=== PATIENT | female | born 1985 | race Caucasian/White ===

== ENCOUNTER 2020-09-21 17:10 | Outpatient (CLI) | payer OTHER, SELFPAY ==
--- NOTE | ~2020-09-21 | US_ITS ---
EXAMINATION: US venous doppler [facility] DATE: 09/21/2020 17:50 INDICATION: Left lower limb swelling TECHNIQUE: Freed scale images without and with compression and Doppler images of the left lower extrem ity veins were obtained. COMPARISON: None FINDINGS: The left common femoral vein, profunda femoral vein, femoral vein, popliteal vein, peroneal trunk, posterior tibial veins, and greater saphenous vein are patent. IMPRESSION: 1. Patent left lower extremity veins. No evidence of deep venous thrombosis. Reviewed, dictated and finalized at location A. TIONAL TRAINER
== END 2020-09-21 17:11 | disposition home or self-care (01) ==
PROVIDERS: PCP Obstetrics & Gynecology; Referring Provider Advanced Practice Midwife; Visit Provider Obstetrics & Gynecology
DX: R60.0 Localized edema (principal)
CPT/HCPCS: 93971

== ENCOUNTER 2020-10-12 06:13 | Inpatient (IN) | payer OTHER, SELFPAY ==
[2020-10-12] VITALS (39 sets, daily range): BP systolic 57–150; BP diastolic 35–109; PULSE 61–104; RESP 16; TEMP 36.2–36.8; O2SAT 98–100; BMI 35.2
--- NOTE | 2020-10-12 06:13 | LDADM ---
This patient, Estefanía Parada, was admitted to Labor/Delivery/Recovery 104 on 10/12/20 at 06:13. Plans for labor, pain management and were discussed with patient. Patient/family oriented to hospital policies and general routines including ID bracelet, bed and alarms, visiting hours, pain management, procedures, bathroom and other care routines, personal items, smoking policy, room service/diet and guest tray routines, infant security routines, and visiting hours. Patient/Family are encouraged to report perceived risks to care and to ask questions if they do not understand what they are told or what they should do. See OBIX for further documentation.
--- OUTSIDE RECORDS SUMMARY | 2020-10-12 06:18 | XMS_ITS | Encounter Summary ---
:1985 Author Care Team Providers Name Role Phone Cindy Irwin MD Primary Care Provider [phone] Reason for Visit OB visit 37w5d Assessment and Plan 1. Routine care Additional precautionary measu res were taken to minimize potential exposure to the Covid-19 virus during this patien t?s visit, including available hand parakeet raiser upon arrive, temperature check and being asked a series of screening questions. All staff wore face coverings during this en counter, as well as provided additional cleaning and sanitizing of all surfaces, including countertops, pens, chairs, door handles, light switches, etc, prior to a nd following the patient?s visit. Discussion Note: None recorded.Patient educational handouts: No information available. Plan of Care Reminders Provider Appointments Ob Routine Lily Harris CNM 10/13/2020 3:30PM ? Ob Routine Beryl Harris CNM 10/19/2020 3:45PM Lab None ? ? recorded. Referral None ? ? recorded. Procedures None ? ? recorded. Surgeries None ? ? recorded. Imaging None ? ? recorded. Medications Name Start Date ? ? ? Vitamin D ? Medica
--- OUTSIDE RECORDS SUMMARY | 2020-10-12 06:18 | XMS_ITS ---
:1985 Author Care Team Providers Name Role Phone WALKER GUERRA MD Primary Care Provider [phone] Allergies Code Code System Name Reaction Severity Status Onset NKDA ? Medications Name Status Start Date Stop Date ? ? Anusol-HC 2.5 % topical cream with perineal applicator Completed 03/19/2018 07/04/2019 apply by topical route 2 times every day to the affected area(s ) dicyclomine 20 mg tablet Completed ? 020 Angeline 0.35 mg tablet Completed 01/29/2014 09/11/2017 take 1 tablet by oral route every day Fora [id number] strips-lancets 30 gauge combo pack Complete d 02/15/2018 07/04/2019 pt checking BS QID fasting and 1 hr after each meal iron ER 325 mg (65 mg iron) capsule,extended release Completed ? 09/11/2017 take 1 Tablet by Oral route 3 times every day OneTouch Delica Plus Lancet 33 gauge Completed ? 10/01/2020 USE TO TEST BLOOD SUGAR 4 TIMES DAILY F ASTING IN MORNING & 1 HR AFTER BREAKFAST, LUNCH, & DINNER OneTouch Verio Reflect Meter Completed ? 05/2021 USE TO TEST BLOOD SUGAR FOUR TIMES DAILY OneTouch Verio test strips Completed ? 10/01 USE TO TEST BLOOD SUGAR 4 TIMES DAILY F ASTING IN MORNING & 1 HR AFTER BREAKFAST, LUNCH & DINNER Active ? Not available Reglan 10 mg tablet Completed 06/03/2013 01/29/2014 take 1 tablet (10MG) by oral route every 6 hours as needed fo r nausea Slynd 4 mg (28) tablet Active 07/04/2019 Not avail able take 1 tablet by oral route every day at the same time each da y Triveen-Duo DHA 29 mg-1 mg-400 mg oral pack Completed 04/2406/18/2013
--- OUTSIDE RECORDS SUMMARY | 2020-10-12 06:19 | XMS_ITS | Encounter Summary ---
:1985 Author Care Team Providers Name Role Phone Cindy Irwin MD Primary Care Provider [phone] Reason for Visit OB visit Assessment and Plan 1. Routine care Discussion Note: None recorded.Patient educational handouts: No [...] Date ? ? ? Vitamin D ? Medications Administered None recorded. Vitals Height Weight BMI Blood Pressure 5 ft 4.75 in 212 lbs 35.5 kg/m2 123/76 mm[Hg] Results Lab Results None recorded. Allergies Code Code System Name Reaction Severity Onset NKDA ? ? ? Problems Name Status Onset Date Source ?
--- OUTSIDE RECORDS SUMMARY | 2020-10-12 06:19 | XMS_ITS | Encounter Summary ---
:1985 Author Care Team Providers Name Role Phone Cindy Irwin MD Primary Care Provider [phone] Reason for Visit OB visit 32w2d Assessment and Plan 1. Routine care Additional precautionary measu res were taken to minimize potential exposure to the Covid-19 virus during this patien t?s visit, including available hand street contractor upon arrive, temperature check and being asked [...] Date ? ? ? Vitamin D ? Medic
--- OUTSIDE RECORDS SUMMARY | 2020-10-12 06:19 | XMS_ITS | Encounter Summary ---
:1985 Author Care Team Providers Name Role Phone Cindy Irwin MD Primary Care Provider [phone] Reason for Visit OB visit [id number] increased swollen in left le g/ankle Assessment and Plan 1. Routine care Additional precautionary measu res were taken to minimize potential exposure to the Covid-19 virus during this patien t?s visit, including available hand business solution analyst upon arrive, temperature check and being asked a series of screening questions. All staff wore face coverings during this en counter, as well as provided additional cleaning and sanitizing of all surfaces, including countertops, pens, chairs, door handles, light switches, etc, prior to a nd following the patient?s visit. 2. Edema of lower extremity ? US, doppler, venous Discussion Note: None recorded.Patient educational handouts: No information available. Plan of Care Reminders Provider Appointments Ob Routine Lily Harris CNM 10/13/2020 3:30PM ? Ob Routine Beryl Harris CNM 10/19/2020 3:45PM Lab None ? ? recorded. Referral None ? ? recorded. Procedures None ? ? recorded. Surgeries None ? ? recorded. Imaging US, Doppler, ? Venous 09/21/2020 Medications
--- OUTSIDE RECORDS SUMMARY | 2020-10-12 06:19 | XMS_ITS | Encounter Summary ---
:1985 Author Care Team Providers Name Role Phone Cindy Irwin MD Primary Care Provider [phone] Reason for Visit None recorded. Assessment and Plan 1. Medical examination for suspe cted condition ? US, obstetric, limited Discussion Note: None recorded.Patient educational handouts: No information available. Plan of Care Reminders Provider Appointments Ob Routine Lily Harris CNM 10/13/2020 3:30PM ? Ob Routine Beryl Harris CNM 10/19/2020 3:45PM Lab None ? ? recorded. Referral None ? ? recorded. Procedures None ? ? recorded. Surgeries None ? ? recorded. Imaging US, [facility], Limited 09/21/2020 Medications Name Start Date ? ? ? Vitamin D ? Medications Administered None recorded. Vitals None recorded. Results Lab Results None recorded. Allergies Code Code System Name Reaction Severity Onset NKDA ? ? ? Problems Name Status Onset Date Source ?
--- OUTSIDE RECORDS SUMMARY | 2020-10-12 06:19 | XMS_ITS | Encounter Summary ---
:1985 Author Care Team Providers Name Role Phone Cindy Irwin MD Primary Care Provider [phone] Reason for Visit OB visit 30w2d Assessment and Plan 1. Routine care Discussion [...] BMI Blood Pressure 5 ft 4.75 in 209 lbs 35 kg/m2 130/78 mm[Hg] Results Lab Results None recorded. Allergies Code Code System Name Reaction Severity Onset NKDA ? ? ? Problems Name Status Onset Date Source ?
[2020-10-12] MEDS: OXYTOCIN 30 UNITS/NS 500 ML 30 UNITS/500 ML BAG IV CONT (06:47)
[2020-10-12] MEDS: LACTATED RINGERS 1,000 ML 125 ML IV CONT (06:48)
[2020-10-12 06:51] LABS: Basophils Percent Auto 0.4 % (0.2-1.2); Eosinophils Absolute Auto 0.1 K/mm3 (0-0.3); Eosinophils Percent Auto 0.9 % (0-4.4); Hematocrit 33.8 % (37.0-47.0); Hemoglobin 11.3 g/dL (12.0-15.0); Immature Granulocyte Absolute 0.13 K/mm3 (0.00-0.031); Immature Granulocyte Percent A 1.6 % (0-0.5); Lymphocytes Absolute Auto 1.82 K/mm3 (0.9-3.2); Lymphocytes Percent Auto 22.2 % (18.3-44.2); Mean Corpuscular HGB Conc 33.4 g/dl (32-36); Mean Corpuscular Hemoglobin 29.5 pg (26-34); Mean Corpuscular Volume 88.3 fl (80-100); Mean Platelet Volume 11.2 fl (7.4-10.4); Monocytes Absolute Auto 0.8 K/mm3 (0.1-0.6); Monocytes Percent Auto 9.2 % (2.6-8.5); Neutrophils Absolute Auto 5.4 K/mm3 (1.3-6.7); Neutrophils Percent Auto 65.7 % (45.5-73.1); Platelet Count Result 168 k/mm3 (150-375); Red Blood Count 3.83 M/mm3 (4.2-5.4); Red Cell Distribution Width 16.4 % (11.5-14.5); White Blood Count 8.2 K/mm3 (4.5-10.0)
--- NOTE | 2020-10-12 08:26 | WPDOBADMIT ---
Obstetrics - Admit Note Admission Note: Elective induction of labor. record reviewed. No pertinent additions to the history and/or any subsequent changes in the physical findings that are not consistent with the expected course of the were found. Additions to the history and/or subsequent changes in the physical findings follow. None.
[2020-10-12] MEDS: fentaNYL CITRATE INJ (*CRX) 100 MCG/2 ML VIAL 50 MCG IV PUSH (12:44)
--- NOTE | 2020-10-12 14:02 | PM.OBPRVD ---
OB - Delivery Note Procedure Delivery date: 10/12/20 Intrapartal events: None Induction method: per pitocin protocol Delivery monitor: external FHT and external uterine Route of delivery: Episiotomy description: None Laceration Description: None Quantitative Blood Loss (ml): 204 Anesthesia type: None Baby Date of : 10/12/20 Time of : 13:46 Weeks of gestation at delivery: 39 Infant gender: Male Weight (pounds): 9 Weight (ounces): 10 presentation: vertex position: Left Occiput Anterior Placenta delivery description: Spontaneous cord vessel description: 3 Vessels and Delayed Cord Clamping score one minute: 8 score five minutes: 9 Narrative: Delivery per Z. Due SNM. Mother and baby in stable condition. Cord gasses collected and handed off to staff.
[2020-10-12] MEDS: OXYTOCIN 30 UNITS/NS 500 ML 30 UNITS/500 ML BAG 125 UNITS IV CONT (14:18)
[2020-10-12] MEDS: IBUPROFEN 600 MG TABLET PO (14:23)
--- NOTE | 2020-10-12 16:12 | PC.NURSE ---
Patient transferred to post room #290 via wheelchair. Support person present. Oriented to unit, room, information board, rooming in, admission packet and security measures. Patient verbalizes understanding.
[2020-10-13 05:00] VITALS: BP 120/71; RESP 16; TEMP 36.9; O2SAT 98
[2020-10-13 05:16] LABS: Hematocrit 29.4 % (37.0-47.0); Hemoglobin 9.7 g/dL (12.0-15.0)
[2020-10-13 06:59] LABS: Rapid Plasma Reagin Non-Reactive (NonReactive)
[2020-10-13 08:10] VITALS: BP 113/63; PULSE 70; RESP 16; TEMP 36.7; O2SAT 99
--- NOTE | 2020-10-13 08:17 | PM.OBPNVD ---
OB - PN: Subj Subjective Date/time seen: 10/13/20 08:17 Patient comments: no complaints baby status: doing well OB - PN: Obj Data Labs CBC & Chem 7: 10/13/20 04:59 Labs: Laboratory Results - last 24 hr 10/12/20 10/13/20 06:41 04:59 Hgb 9.7 L Hct 29.4 L RPR Non-reactive OB - PN A/P Plan day: 1 Plan: routine care and discharge home (Follow up 4 weeks) Time Spent With Patient Time: Total time spent is greater than 50% in coordination of care (as documented) at patient's floor/unit and/or counseling patient: Time with patient: less than 15 minutes Review of Systems Review of Systems: All systems reviewed & are unremarkable except as noted in HPI and below Exam Narrative: Exam Narrative: Fundus firm and vaginal flow controlled. No lower ext redness, warmth, or edema. Negative homans. Const: General: comfortable Chest: Breast/axilla inspection: normal inspection of the breasts Resp: Effort & Inspection: normal respiratory effort Cardio: Rate: regular rate GI: GI Palp: Yes Soft to palpation Psych: Appearance: grossly normal Affect: normal affect Attitude: cooperative Thought content: Yes Normal thought content present Judgement: Good judgement present (Psych)
[2020-10-13] MEDS: CHOLECALCIFEROL 1,000 UNITS TABLET 2000 UNITS PO (08:27)
[2020-10-13] MEDS: MULTIVIT/MIN/PREN/FOL AC/IRON TABLET 1 TAB PO (08:28)
[2020-10-13] MEDS: FERROUS SULFATE 324 MG TABLET PO (08:28)
[2020-10-13] MEDS: IBUPROFEN 600 MG TABLET PO (08:29)
[2020-10-13] MEDS: DOCUSATE SODIUM 100 MG CAPSULE PO (08:29)
--- NOTE | 2020-10-13 10:50 | PC.NURSE ---
Consult with pt., mother reports infant is easily latching without issue. Reporting sleepiness at times. Demonstrated stimulation techniques to wake and stimulate while feeding to keep awake and nursing effectively. Observed mother is able to independently latch infant with appropriate positioning/alignment. Infant is nursing vigorously with long rhythmic draws and freq swallowing is noted. Infant responds well to gentle stimulation with increased nursing. She denies any nipple discomfort, is feeding as required and waking to feed if needed. Infant has had several as required effective feedings in the past 24 hours, and is currently meeting outcomes for weight, output, jaundice and feeding frequencies. Mother states she feels confident to continue effective at home. Reviewed transition to breast milk, signs of adequate intake, and engorgement/relief. Instructed to call ICP if intake/output less than required. Reviewed regular medications mother is taking. Information provided per Josephine. Reviewed community resources on the [employer] website and in the Mom/Baby guide. Information on outpatient services provided. Mother has no further questions at this time.
[2020-10-13] MEDS: ACETAMINOPHEN 325 MG TABLET 650 MG PO (11:53)
[2020-10-13 13:08] VITALS: BP 111/64; PULSE 68; RESP 18; TEMP 36.6; O2SAT 97
[2020-10-14 09:53] VITALS: BP 114/79; PULSE 66; RESP 16; TEMP 36.6; O2SAT 97
--- NOTE | 2020-10-22 07:53 | PM.OBDSVD ---
DS: Admitting Diagnosis Admitting Diagnosis Admitting Diagnosis: Induction of labor DS: Discharge Diagnosis Discharge Diagnosis (1) Vaginal delivery: Code(s): O80 - Encounter for full-term uncomplicated delivery Status: Acute OB - DS: Summary OB Procedures : None OB Procedures Intrapartum: Spontaneous Vag Delivery OB Procedures: : None Time Spent with Patient Time attestation: Total time spent providing and/or coordinating discharge services: Discharge Plan Discharge Attending physician on discharge: Beryl Harris Consulting providers: Geovani Pickens ; Beryl Harris Discharging Clinician: Beryl Harris Patient Disposition: Home, Self-Care Activity: pelvic rest Diet: as tolerated Discharge Instructions: Education: Mom and Baby Guide Given to: Mother Follow-Up: Call your delivering provider's office for an appointment to be seen in: 4 Weeks Mom and baby should come to the [facility] for the follow-up appointment. Appointment Date/Time: October 14, 2020 at 10:00 am What to expect at your follow-up visit: Physical Assessment Call [phone] if you are unable to keep your appointment time. BREAST CARE: * Wear a snug supportive bra. * For engorgement discomfort: Breast Feeding: * Apply warm moist washcloths * Express milk as needed to relieve engorgement * Wear loose clothing * For sore nipples: * Identify correct latch-on * Apply warm moist washcloths before and after nursing * Air dry nipples after nursing * May apply Lansinoh cream to nipples EPISIOTOMY/PERINEAL CARE: * Until bleeding stops, use your heather bottle after urinating * Change your pad frequently throughout the day * No tub baths until seen by your physician - You may shower ACTIVITY: * Rest as much as possible. * Do not exercise or lift anything heavier than your baby (such as laundry or other children.) * Avoid stairs or driving as much as possible. * Do not put anything into the vagina. No douching, tampons, or sexual activity until seen by physician. NOTIFY PHYSICIAN IF YOU HAVE ANY QUESTIONS OR IF ANY OF THE FOLLOWING SYMPTOMS OCCUR: * If your perineum becomes red, swollen, or more painful than what you have experienced in the hospital. * If your vaginal bleeding becomes foul smelling. * If your vaginal bleeding becomes more heavy than a period or if your bleeding changes from pink to bright red. However, you may pass an occasional walnut-sized clot once or twice for the first week . * If you experience a sharp, shooting pain in you calves. * If you discover a hard, reddened area on your breast or if you experience flu-like symptoms. DIET: * Eat regular, well-balanced meals. * Drink plenty of fluids daily. If , drink to thirst. Patient Instructions: Antibiotic Form Stand Alone Forms: General Discharge Information Follow-up/Referrals: Beryl Harris CNM [Certified Nurse Resource Room Special Education Teacher] - Discharge Medications: New polysaccharide iron complex 150 mg iron Capsule 150 mg PO BIDWM Qty: 60 RF: 0 Continued ferrous sulfate 325 mg (65 mg iron) Tablet,Delayed Release (Dr/Ec) 325 mg PO DAILY RF: 0 prenat.vits,pancho,[id number] Tablet 1 tablet PO DAILY RF: 0 cholecalciferol (vitamin D3) [Vitamin D3] 50 mcg (2,000 unit) Capsule 50 mcg PO DAILY RF: 0 Date of admission: 10/12/20 06:13 Primary Care Provider: PHYSICIAN,JAVA WEBSPHERE DEVELOPER Admitting Provider: Mariajose Mota Attending physician on admission: Mariajose Mota Condition: Stable
== END 2020-10-13 16:30 | disposition home or self-care (01) | DRG 807 ==
LOC: ANHLDR 06:17 → ANHOB2 16:17
PROVIDERS: Advanced Practice Midwife; Admitting Provider Obstetrics & Gynecology; Visit Provider Obstetrics & Gynecology
DX: O80 Encounter for full-term uncomplicated delivery (principal); Z37.0 Single live birth; Z3A.39 39 weeks gestation of pregnancy
CPT/HCPCS: 36415; 85014; 85018; 85025; 86592; 86850; 86900; 86901; A9270; J2590; J3010; J7120